=== PATIENT | female | born 1965 | race Caucasian/White ===

== ENCOUNTER 2019-04-22 21:44 | Emergency (ER) | payer BC ==
[2019-04-22 22:00] VITALS: TEMP 97.9; BMI 23.3
--- NOTE | 2019-04-22 23:17 | PDOC ---
*Physical Exam - Vital Signs Last Vital Signs Temp Pulse Resp BP Pulse Ox 97.9 F 64 16 200/95 H 100 04/22/19 21:56 04/22/19 21:56 04/22/19 21:56 04/22/19 21:56 04/22/19 21:56 Medical Decision Making - Medical Decision Making 04/22/19 23:16 Patient seen by the advanced practice provider under my supervision. Ancillary testing reviewed as necessary. I agree with plan as outlined by the advanced practice provider. Discharge - Discharge Information Problems reviewed: Yes Clinical Impression/Diagnosis: Pharyngitis with viral syndrome Condition: Stable Disposition: HOME - Follow up/Referral Referrals: Madeleine Bates MD [Primary Care Provider] - - Patient Discharge Instructions Patient Printed Discharge Instructions: DI for Viral Pharyngitis Additional Instructions: Your Discharge Instructions: You must call primary care physician within 24 hours to arrange follow-up. Return to the Emergency Department with any new, persistent or worsening symptoms, for fever, chills, SOB, dizziness or any other concerning changes that may occur. Continue Tylenol every 4 hours and/or Motrin every 6 hours for your pain or if you have fever. - Post Discharge Activity
--- NOTE | 2019-04-22 23:27 | PDOC ---
History of Present Illness - General Chief Complaint: Sore Throat Stated Complaint: SORE THROAT Time Seen by Provider: 04/22/19 23:16 History Source: Patient Exam Limitations: No Limitations - History of Present Illness Initial Comments: 04/22/19 23:18 Patient is a 53-year old female with history of HTN here with complaints of sore throat since yesterday. States the pain is sharp 8/10 to the point she is unable to swallow solid food, but able to tolerate her saliva. Denies fever, chills, nausea, vomiting, ear pain, cough, abd pain, dysuria. PMD: Dr. Madeleine Bates PMHX: as above PSOCHX: neg cig, etoh, drug FamHx; noncontributory ALL: NKDA GENERAL/CONSTITUTIONAL: [No fever or chills. No weakness. No weight change.] HEAD, EYES, EARS, NOSE AND THROAT: [No change in vision. No ear pain or discharge. (+) sore throat.] CARDIOVASCULAR: [No chest pain or shortness of breath.] RESPIRATORY: [No cough, wheezing, or hemoptysis.] GASTROINTESTINAL: [No nausea, vomiting, diarrhea or constipation. No rectal bleeding.] GENITOURINARY: [No dysuria, frequency, or change in urination.] MUSCULOSKELETAL: [No joint or muscle swelling or pain. No neck or back pain.] SKIN AND BREASTS: [No rash or easy bruising.] NEUROLOGIC: [No headache, vertigo, loss of consciousness, or loss of sensation.] PSYCHIATRIC: [No depression or anxiety.] ENDOCRINE: [No increased thirst. No abnormal weight change.] HEMATOLOGIC/LYMPHATIC: [No anemia, easy bleeding, or history of blood clots.] ALLERGIC/IMMUNOLOGIC: [No hives or skin allergy. No latex allergy.] GENERAL: [The patient is awake, alert, and fully oriented, in no acute distress.] HEAD: [Normal with no signs of trauma.] EYES: [Pupils equal, round and reactive to light, extraocular movements intact, sclera anicteric, conjunctiva clear.] ENT: [Ears normal, nares patent, oropharynx clear without exudates, mild erythema. Moist mucous membranes.] NECK: [Normal range of motion, supple without lymphadenopathy, JVD, or masses.] LUNGS: [Breath sounds equal, clear to auscultation bilaterally. No wheezes, and no crackles.] HEART: [Regular rate and rhythm, normal S1 and S2 without murmur, rub.] ABDOMEN: [Soft, nontender, normoactive bowel sounds. No guarding, no rebound. No masses.] EXTREMITIES: [Normal range of motion, no edema. No clubbing or cyanosis. No cords, erythema, or tenderness.] NEUROLOGICAL: [Cranial nerves II through XII grossly intact. Normal speech, normal gait.] PSYCH: [Normal mood, normal affect.] SKIN: [Warm, Dry, normal turgor, no rashes or lesions noted.] Past History - Past Medical History Allergies/Adverse Reactions: Allergies Allergy/AdvReac Type Severity Reaction Status Date / Time No Known Allergies Allergy Verified 04/22/19 22:00 Home Medications: Ambulatory Orders NK [No Known Home Medication] 04/23/19 COPD: No HTN: Yes - Psycho Social/Smoking Cessation Hx Smoking History: Never smoked Hx Alcohol Use: No Drug/Substance Use Hx: No *Physical Exam - Vital Signs Last Vital Signs Temp Pulse Resp BP Pulse Ox 97.9 F 64 16 200/95 H 100 04/22/19 21:56 04/22/19 21:56 04/22/19 21:56 04/22/19 21:56 04/22/19 21:56 Medical Decision Making - Medical Decision Making 04/22/19 23:18 Patient is a 53-year old female with history of HTN here with complaints of sore throat since yesterday. States the pain is sharp 8/10 to the point she is unable to swallow solid food, but able to tolerate her saliva. Denies fever, chills, nausea, vomiting, ear pain, cough, abd pain, dysuria. Symptoms consistent with sore throat possibly viral pharyngitis. Will swab for strep. Pain meds, decadron Rapid strep is negative Selected Entries 04/23/19 00:27 Pulse Rate [ 58 L Left Radial] Respiratory 18 Rate Blood Pressure 173/95 H [Left Arm] O2 Sat by Pulse 100 Oximetry (%) I discussed the physical exam findings, ancillary test results and final diagnoses with the patient. I answered all of the patient's questions. The patient was satisfied with the care received and felt comfortable with the discharge plan and treatment plan. The Patient agrees to follow up with the primary care physician within 24-72 hours. Discharge - Discharge Information Problems reviewed: Yes Clinical Impression/Diagnosis: Pharyngitis with viral syndrome Condition: Stable Disposition: HOME - Follow up/Referral Referrals: Madeleine Bates MD [Primary Care Provider] - - Patient Discharge Instructions Patient Printed Discharge Instructions: DI for Viral Pharyngitis Additional Instructions: Your Discharge Instructions: You must call primary care physician within 24 hours to arrange follow-up. Return to the Emergency Department with any new, persistent or worsening symptoms, for fever, chills, SOB, dizziness or any other concerning changes that may occur. Continue Tylenol every 4 hours and/or Motrin every 6 hours for your pain or if you have fever. - Post Discharge Activity
[2019-04-22] MEDS ORDERED: KETOROLAC TROMETHAMINE 30 MG/1 ML VIAL IM ONE (23:29)
[2019-04-22] MEDS ORDERED: DEXAMETHASONE LIQUID 0.5 MG/5 ML PO ONE (23:29)
[2019-04-22] MEDS ORDERED: KETOROLAC TROMETHAMINE 30 MG/1 ML VIAL ONE (23:35)
[2019-04-22] MEDS ORDERED: DEXAMETHASONE SOD PHOSPHATE 10 MG/1 ML VIAL ONE (23:35)
[2019-04-23 00:27] VITALS: BP 173/95; PULSE 58
== END 2019-04-23 00:33 | disposition home or self-care (01) ==
LOC: JER 21:44
PROC: 3E0233Z Introduction of Anti-inflammatory into Muscle, Percutaneous Approach (ICD-10-PCS; principal; 2019-04-22)
DX: J02.9 Acute pharyngitis, unspecified (principal); B97.89 Other viral agents as the cause of diseases classified elsewhere; I10 Essential (primary) hypertension
CPT/HCPCS: 87070; 87880; 99284-25